=== PATIENT | female | born 1975 | race Caucasian/White ===

== ENCOUNTER → 2017-11-08 | Outpatient (CLI) | payer OTHER, BC ==
--- NOTE | 2017-11-08 09:32 | DIAGNOSTIC IMAGING REPORT ---
R EXTREMITY NONVASCULAR LIMITED CLINICAL HISTORY: 42 years-old Female presenting with R/O TENDON TEARS,R REAR FOOT/ANKLE. TECHNIQUE: Real-time grayscale Doppler ultrasound imaging of the right foot was performed for a focused evaluation at the site of clinical concern. COMPARISON: None. FINDINGS: At one of the two sites of pain, along the dorsum of the midfoot, fluid tracks along the extensor tendons. No focal cystic mass. Along the lateral hindfoot at the level of the peroneus muscle complex, a similar finding of fluid tracking along the one of the peroneal tendon sheaths noted. No focal cystic mass. IMPRESSION: 1. Findings raise concern tenosynovitis of the extensor tendons as well as the peroneal tendons. This be better demonstrated with MRI of the ankle/midfoot. No gross evidence of a complete tendon tear or ganglion cyst. Electronically signed by: Johnny Gomez M.D. 11/08/2017 9:31 AM Dictated Date/Time: 11/08/2017 9:28 AM
== END | disposition home or self-care (01) ==
LOC: C.ULTR 08:46
PROVIDERS: ATTEND Podiatrist Primary Podiatric Medicine
DX: S99.921A Unspecified injury of right foot, initial encounter (principal); S99.911A Unspecified injury of right ankle, initial encounter; X58.XXXA Exposure to other specified factors, initial encounter

== ENCOUNTER → 2017-11-15 | Outpatient (CLI) | payer OTHER, BC ==
--- NOTE | 2017-11-15 16:20 | DIAGNOSTIC IMAGING REPORT ---
MRI OF THE RIGHT ANKLE WITHOUT IV CONTRAST CLINICAL HISTORY: Right ankle pain. COMPARISON STUDY: No priors. TECHNIQUE: MRI of the right ankle is performed utilizing various T1 and T2-weighted sequences in the axial, sagittal, and coronal planes. IV contrast was not administered for this examination. Note that interpretation is suboptimal without plain film correlate. FINDINGS: Normal marrow signal intensity is preserved throughout the visualized bony structures. There is no MRI evidence of fracture. No osteochondral defect is seen in the talar dome. There is no significant joint effusion. A small bone island is incidentally noted in the talus. Normal fat is maintained within the sinus tarsi. The Achilles tendon is normal in morphology and signal intensity. The anterior and posterior tendons appear intact. The peroneal tendons appear intact. Slightly increased signal within the peroneus brevis tendon suggests tendinopathy. There is fluid around the peroneal tendons deep to the cutaneous markers consistent with tenosynovitis. The anterior talofibular and tibiofibular ligaments appear intact. The deltoid and spring ligaments are normal as visualized. The regional musculature is normal in bulk and signal intensity. The partially imaged plantar fascia is normal in appearance. IMPRESSION: 1. The peroneal tendons appear intact. There is likely mild tendinopathy of the peroneus brevis tendon as above. 2. Fluid along the peroneal tendon sheaths is consistent with tenosynovitis. This is deep to the cutaneous markers at the site of pain. 3. The anterior tendons, posterior tendons, and Achilles tendon are normal in morphology and signal intensity. 4. No osseous abnormality is identified. Dictated: 11/15/2017 3:42 PM Transcribed: 11/15/2017 4:19 PM [place] Electronically signed by: Xiang Bingham M.D. 11/16/2017 8:55 AM Dictated Date/Time: 11/15/2017 3:42 PM
== END | disposition home or self-care (01) ==
LOC: C.MRI 14:09
PROVIDERS: ATTEND Podiatrist Primary Podiatric Medicine
DX: M25.571 Pain in right ankle and joints of right foot (principal)